=== PATIENT | male | born 2000 | race Caucasian/White ===

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

== ENCOUNTER → 2021-04-17 | Outpatient (CLI) | payer OTHER ==
--- NOTE | 2021-04-17 08:19 | RAD ---
US ABDOMEN LIMITED History: Splenomegaly. Comparison: Ultrasound abdomen 11/01/2020. CT abdomen 09/17/2020, 02/23/2019. Technique: Sonographic examination of the spleen. Findings: The spleen is enlarged measuring 16.1 x 15.7 x 6.3 cm, similar to comparison exam. The splenic echote xture is mildly heterogeneous. There is a focal hypoechoic nonvascular area measuring 0.7 cm diameter corresponding to hypoattenuation seen on comparison CTs. Patent splenic vasculature. Impression: 1. Unchanged splenomegaly measuring up to 16.1 cm diameter. 2. Redemonstrated focal hypoechoic nonvascular area measuring 0.7 cm diameter corresponding to hypoa ttenuating focus seen on comparison CT exams which may represent small cyst or hemangioma. Electronically signed by: Jair Barrios MD (04/17/2021 8:16 AM) [id number]
== END ==
LOC: US 07:10
PROVIDERS: ATTEND Internal Medicine Hematology & Oncology
DX: R16.1 Splenomegaly, not elsewhere classified (principal)
CPT/HCPCS: 76705